=== PATIENT | female | born 1965 | race Caucasian/White ===

== ENCOUNTER 2025-06-05 14:50 | Emergency (ER) | payer MEDICAID, SELFPAY ==
--- NOTE | 2025-06-05 15:25 | XR_ITS ---
The [address] [address] Patient Name: JHON FRANKLIN MRN: [id number] date: 1965 Sex: F Assigned Patient Location: ED.MAIN Current Patient Location: ED.MAIN Accession/Order Number: [id number] Exam Date: 06/05/2025 15:40 Report Date: 06/05/2025 16:38 At the request of: JOSELYN LUNDBERG MD Procedure: XR hand RT min 3V Right hand, 3 views COMPARISON: None REASON FOR EXAM: Rule out foreign body FINDINGS: No fractures or dislocation. Soft tissues unremarkable. No radiopaque foreign body identified.. IMPRESSION: NO ACUTE BONY INJURY. NO RADIOPAQUE FOREIGN BODY IDENTIFIED. Impression dictated by: Evert Baptiste M.D. 06/05/2025 4:38 PM Dictation Location: [place] [address] Electronically authenticated by: [id number] Y Date: 06/05/2025 16:38
[2025-06-05 15:26] VITALS: BP 112/77; PULSE 88; TEMP 36.8; O2SAT 96; BMI 28.3
--- NOTE | 2025-06-05 15:35 | ED_ITS ---
HPI HPI - General Adult General Chief complaint: Extremity Injury, Upper Stated complaint: UPPER EXTREMITY INJURY Time Seen by Provider: 06/05/25 15:04 Source: patient Mode of arrival: walk-in History of Present Illness HPI narrative: 89-year-old female presented to the emergency department for chief complaint of laceration to her right hand. She cut it on a broken piece of glass when she put her hand inside of a glass to wash it. She is right-handed and this occurred just before coming into the emergency department. She had a tetanus shot 1 or 2 years ago. Weakness or numbness. Related Data Home Medications ?Medication ?Instructions ?Recorded ?Confirmed clopidogrel 75 mg tablet mg 06/05/25 Allergies Allergy/AdvReac Type Severity Reaction Status Date / Time aspirin Allergy Hives Verified 06/05/25 15:26 flu vaccine Allergy sick Uncoded 06/05/25 15:26 Opioid HPI Opioid Management Most Recent Opioid Data: Last Pain Scale 7 Today, 15:26 Review of Systems ROS Narrative A ten point review of systems is negative except as noted above. PFSH PFSH Social History Little interest or pleasure in doing things: not at all Feeling down, depressed, or hopeless: not at all Exam Narrative Exam Narrative: Nurses note and vital signs reviewed and patient is not hypoxic. General:The patient appears well and in no apparent distress.Patient is resting comfortably on cart. Skin:Warm, dry, no pallor noted.There is no rash noted. Head:Normocephalic, atraumatic Eye: Normal conjunctiva, no drainage Ears, Nose, Mouth, and Throat: oral mucosa is moist. Nares patent. Cardiovascular:Regular Rate and Rhythm Respiratory:Patient is in no distress, no accessory muscle use, lungs are clear to auscultation, no wheezing, rales or rhonchi Back:non-tender GI: Nontender Musculoskeletal: She has 2 lacerations on the right hand. The first is on the dorsum of her hand proximal to the sub the fifth finger. The second is a curved laceration on the ulnar side just proximal to the base of the fifth finger. The first laceration is 2 cm in length, the second 1 is 3 cm. Neurological:A&O, normal speech: Fingers have full range of motion Psychiatric:Cooperative Constitutional Vital Signs, click to edit/add: Last Vital Signs Temp 98.2 F 06/05/25 15:26 Pulse 88 06/05/25 15:26 Resp 16 06/05/25 15:26 BP 112/77 06/05/25 15:26 Pulse Ox 96 06/05/25 15:26 O2 Del Method Room Air 06/05/25 15:26 Course Vital Signs Vital signs: Vital Signs Temperature 98.2 F 06/05/25 15:26 Pulse Rate 88 06/05/25 15:26 Respiratory Rate 16 06/05/25 15:26 Blood Pressure 112/77 06/05/25 15:26 Pulse Oximetry 96 06/05/25 15:26 Oxygen Delivery Method Room Air 06/05/25 15:26 Temperature 98.2 F 06/05/25 15:26 Pulse Rate 88 06/05/25 15:26 Respiratory Rate 16 06/05/25 15:26 Blood Pressure 112/77 06/05/25 15:26 Pulse Oximetry 96 06/05/25 15:26 Oxygen Delivery Method Room Air 06/05/25 15:26 Medical Decision Making MDM Narrative Medical decision making narrative: The following procedures were performed by me. Local infiltration was carried out with 1% lidocaine without epinephrine resulting in complete skin anesthesia. The areas were prepped with Betadine x 3 and draped sterilely and explored for foreign bodies and normal found. The first laceration was closed with three 4-0 Ethilon sutures in the second laceration was closed with four 4-0 Ethilon sutures. All of this resulted in good skin reapproximation and complete hemostasis. No complications. Applied, application checked by me and found to be appropriate, she is neurovascular intact. There is open to be removed in a week. Treatment diagnosis and follow-up were discussed with the patient. No evidence of foreign body or tendon injury. Differential Diagnosis Differential Diagnosis: Laceration, foreign body, tendon injury Imaging Data Hand: My impression: No foreign body Discharge Plan Discharge Chief Complaint: Extremity Injury, Upper Clinical Impression: Laceration of hand, right Patient Disposition: Home, Self-Care Time of Disposition Decision: 16:21 Condition: Good Mode of Transportation: Private Vehicle Prescriptions / Home Meds: No Action clopidogrel 75 mg tablet Print Language: Italian Instructions: Laceration (ED) Additional Instructions: Sutures to be removed in 7 days. Wear splint until sutures are removed. Referrals: MINI GORMAN [Primary Care Provider, Family Practice] - 1 week
== END 2025-06-05 16:55 | disposition home or self-care (01) ==
LOC: ER 17:08
PROVIDERS: Emergency Provider Emergency Medicine; PCP Family Medicine
DX: S61.411A Laceration without foreign body of right hand, initial encounter (principal); W25.XXXA Contact with sharp glass, initial encounter; Y93.G1 Activity, food preparation and clean up
CPT/HCPCS: 12002; 73130; 99283